=== PATIENT | male | born 1940 | race Caucasian/White ===

== ENCOUNTER 2024-08-02 16:03 | Emergency (ER) | payer OTHER, SELFPAY ==
[2024-08-02 16:05] VITALS: BP 167/96
--- NOTE | 2024-08-02 16:11 | ED.SKININJ ---
HPI-Injury
<Irma Rocha VENDING TECHNICIAN - Last Filed: 08/02/24 16:15>
General
Chief Complaint: Skin Surface Trauma
Time Seen by Provider: 08/02/24 17:09
<Sirisha Hess PA-C - Last Filed: 08/03/24 00:34>
General
Source: patient
History of Present Illness-Injury
Initial Injury comments:
84yo right hand dominant male presenting with his for evaluation after a right hand injury around 3:45pm this afternoon. A falling tree limb fell on the dorsum of his right hand causing lacerations. He arrives with throbbing R hand pain. No
paresthesias. He states his Tdap is out of date.
ED Provider Triage
<Irma Rocha VENDING TECHNICIAN - Last Filed: 08/02/24 16:15>
-
Attestation: A medical screening examination has been initiated by a qualified medical provider. Based on the assessment performed at this time, it has been determined that an emergent medical condition may exist and the patient has been informed
that further medical evaluation and possible additional diagnostic testing may be needed.
HPI: Injury to right hand from heavy tree limb falling from tree above his head.
GENERAL: Alert , in no apparent distress
ENT: No visible abnormalities.
LUNGS: No acute respiratory distress
NEUROLOGICAL: Alert and oriented
SKIN: Skin intact. Cuts on right hand.
MUSCULOSKELETAL: Injury to left hand. Dressing in place. Moving extremities normally
PSYCH: Normal and appropriate interaction.
This is a medical evaluation conducted in person to initiate diagnostic evaluation and provide initial therapeutics. Please see further documentation by the treating clinician.
Past History
<Irma Rocha VENDING TECHNICIAN - Last Filed: 08/02/24 16:15>
Past History
ED Past Medical History: HTN, NIDDM and Other
ED Past Surgical History: Tonsilectomy
Social History
Tobacco: Non-smoker
Personal:
Living: with family
Employment: Retired
Phy Exam
<Sirisha Hess PA-C - Last Filed: 08/03/24 00:34>
General Physical Exam
General Presentation: well appearing and no apparent distress
General age: appears stated age
General Skin: warm and dry
General Habitus: normal
General Mental: alert
ENT Exam
ENT Exam: normocephalic
[place] Coma Scale
Eye Opening: Spontaneous
Verbal Response: Oriented
Motor Response: Obeys Commands
GCS Total Score: 15
Musculoskeletal Exam
Musculoskeletal Exam: other (Gaping laceration to the dorsal R hand in between thumb and index finger. No exposed tendon or bone. Debris noted in wound. There is also a large skin tear to the central dorsal hand. ROM of MCP, PIP, and DIP joints
intact. 2+ radial pulse and sensation intact.)
Skin Exam
Skin Exam: normal color and warm/dry
Psychiatric Exam
Psychiatric Exam: normal mood/affect
Course
<Irma Rocha NP - Last Filed: 08/02/24 16:15>
Orders/Labs/Results
Orders:
Orders
08/02/24 16:13
Hand, Right 3 View [CR Hand - Right Min 3 Views] Urgent
Comment:
Reason For Exam: pain injury
08/02/24 17:19
Oxycodone [Roxicodone] 5 mg PO NOW STA
08/02/24 19:13
Cephalexin Monohydrate [Keflex] 500 mg PO NOW STA
08/02/24 19:55
Tetanus/Diphth/Acelpertussis [Adacel] 0.5 ml IM .ONCE ONE
Vital Signs
Initial and Last Documented VS:
Initial Vital Signs
Temp Pulse Resp BP Pulse Ox
98.1 F 91 16 167/96 97
08/02/24 16:05 08/02/24 16:05 08/02/24 16:05 08/02/24 16:05 08/02/24 16:05
Last Documented Vital Signs
Temp Pulse Resp BP Pulse Ox
98.1 F 72 18 147/74 97
08/02/24 16:05 08/02/24 20:36 08/02/24 20:36 08/02/24 20:36 08/02/24 16:05
<Sirisha Hess PA-C - Last Filed: 08/03/24 00:34>
Orders/Labs/Results
Orders:
Orders
08/02/24 16:13
Hand, Right 3 View [CR Hand - Right Min 3 Views] Urgent
Comment:
Reason For Exam: pain injury
08/02/24 17:19
Oxycodone [Roxicodone] 5 mg PO NOW STA
08/02/24 19:13
Cephalexin Monohydrate [Keflex] 500 mg PO NOW STA
08/02/24 19:55
Tetanus/Diphth/Acelpertussis [Adacel] 0.5 ml IM .ONCE ONE
Vital Signs
Initial and Last Documented VS:
Initial Vital Signs
Temp Pulse Resp BP Pulse Ox
98.1 F 91 16 167/96 97
08/02/24 16:05 08/02/24 16:05 08/02/24 16:05 08/02/24 16:05 08/02/24 16:05
Last Documented Vital Signs
Temp Pulse Resp BP Pulse Ox
98.1 F 72 18 147/74 97
08/02/24 16:05 08/02/24 20:36 08/02/24 20:36 08/02/24 20:36 08/02/24 16:05
<Mark Batista MD - Last Filed: 08/02/24 19:19>
Orders/Labs/Results
Orders:
Orders
08/02/24 16:13
Hand, Right 3 View [CR Hand - Right Min 3 Views] Urgent
Comment:
Reason For Exam: pain injury
08/02/24 17:19
Oxycodone [Roxicodone] 5 mg PO NOW STA
08/02/24 19:13
Cephalexin Monohydrate [Keflex] 500 mg PO NOW STA
08/02/24 19:55
Tetanus/Diphth/Acelpertussis [Adacel] 0.5 ml IM .ONCE ONE
Vital Signs
Initial and Last Documented VS:
Initial Vital Signs
Temp Pulse Resp BP Pulse Ox
98.1 F 91 16 167/96 97
08/02/24 16:05 08/02/24 16:05 08/02/24 16:05 08/02/24 16:05 08/02/24 16:05
Last Documented Vital Signs
Temp Pulse Resp BP Pulse Ox
98.1 F 72 18 147/74 97
08/02/24 16:05 08/02/24 20:36 08/02/24 20:36 08/02/24 20:36 08/02/24 16:05
Procedures
<Sirisha Hess PA-C - Last Filed: 08/03/24 00:34>
Laceration Closure
Right Hand:
Status of Wound: dirty and imbedded foreign material
Size of Wound in cm: 7
Description of Wound Edges: sharp
Preparation: cleaned with saline and cleaned with Betadine
Anesthesia: 1% Lidocaine
Revision/Debridement: debrided
Wound exploration: extensive cleaning of contaminated wound and all visible FB removed
Type of Closure: single layer closure
Skin Closure Material: 4-0 nylon
Number of sutures: 9
<Sirisha Hess PA-C - Last Filed: 08/03/24 00:34>
MDM/Problems Addressed
Differential Diagnosis Includes:
84yoM here with R hand swelling, pain, and lacerations after a tree branch fell on his hand. There is a gaping laceration noted between R thumb and index finger. ROM is normal and RUE is neurovascularly intact. No clinical evidence of tendon injury.
Differential diagnosis includes but is not limited to: laceration, fracture, contusion
Initial ED plan: X-rays of hand obtained in triage which are fortunately negative for fractures. Will update Tdap and repair laceration.
<Sirisha Hess PA-C - Last Filed: 08/03/24 00:34>
*Critical Care Note
Total Time (30-74mins, 75-104mins- exclusive of procedures): Not Applicable
<Sirisha Hess PA-C - Last Filed: 08/03/24 00:34>
Update Note
Update Note:
Laceration was irrigated and several foreign bodies removed. Laceration was repaired as above. Due to the large amount of soft tissue swelling, the laceration was unable to be completely closed. Laceration was repaired with simple interrupted
sutures at the peripheral aspects of the wound. Horizontal mattress sutures placed in the center. The center of the wound still has some gaping. This will heal by secondary intention. Will start on Keflex for prophylaxis given the amount of
debris in the wound. Home wound care discussed. He was advised to follow-up with his PCP in 10 days for suture removal and return to the ED with any signs of infection. Patient and expressed understanding and are agreeable to plan. He was
discharged in stable condition.
ED Attending Note
<Irma Rocha NP - Last Filed: 08/02/24 16:15>
-
Portions of this chart may have been created with voice recognition software.� Occasional wrong word or��sound alike� substitutions may have occurred due to the inherent limitations of voice recognition software.
<Mark Batista MD - Last Filed: 08/02/24 19:19>
ED Attending Note
Patient seen and examined by attending physician: Yes
I performed the substantive portion of visit, reviewed & personally made and approve the management plan that is documented in note by myself or SADIE.: Yes
ED Attending Note:
I have seen and evaluated the patient with a [id number] encounter. I have spoken to the [PA] and involved in the medical history, the physical exam, medical decision making.
Evaluation and management service: agree unless noted differently below.
Results interpretation: agree unless noted differently below.
84-year-old man presenting to the emergency department hand laceration after a tree fell down hitting his right hand. Initial exam does show neurovascularly intact with equal strength in all fingers wrist and hand. He did have significant swelling
to the dorsal aspect of the hand close to the laceration causing difficulty in closing the laceration. The laceration was repaired with simple interrupted. Towards the distal part of the laceration given the amount of swelling it was loosely
approximated. The most amount of swelling was in the middle of the laceration where horizontal mattress sutures were placed to help. Unfortunately there was still some gaping at the end given the tension/swelling. Patient aware that this will
heal by delayed secondary intention with the help of the stitches. Strict return precautions given. Given the amount of debris will start on prophylactic antibiotics.
Discharge Plan
Departure
Patient Disposition: Home (Routine Discharge)
Date of Disposition: 08/02/24
Time of Disposition: 19:15
Patient with high blood pressure during this ER visit?: Yes
Discharge Problem:
Laceration of right hand, Injury of hand, right
Instructions: Laceration Repair With Stitches (DC)
Prescriptions:
New
cephalexin 500 mg capsule
500 mg PO Q6H 7 Days Qty: 27 0RF
No Action
glyburide 5 MG tablet
2 tab PO BID
metformin 850 MG tablet
850 mg PO HS
metformin 850 MG tablet
2 tab PO DAILY
aspirin [Aspir-Low] 81 MG tablet,delayed release (DR/EC)
81 mg PO HS
simvastatin 20 MG tablet
20 mg PO HS
diphenhydramine HCl [Banophen] 25 MG capsule
25 mg PO BID
calcium polycarbophil [Fiber (calcium polycarbophil)] 625 MG tablet
625 mg PO BID
allopurinol 300 MG tablet
300 mg PO DAILY
atenolol 50 MG tablet
50 mg PO DAILY
levofloxacin 500 MG tablet
500 mg PO DAILY Qty: 7 0RF
metronidazole 500 MG tablet
500 mg PO TID Qty: 20 0RF
hydrocodone-acetaminophen [Vicodin] 1 EACH tablet
1 ea PO Q6 PRN (Reason: pain) Qty: 7 0RF
prednisone 20 MG tablet
40 mg PO DAILY Qty: 8 0RF
Referrals:
Gustavo Dominguez MD [Family Provider] -
Activity Restrictions/Additional Instructions:
Take antibiotics as prescribed. Keep wound clean and dry and do not get wet for at least the first 24 hours. Apply bacitracin to the wounds for the first several days.
Please follow-up with your family doctor for suture removal in 10 days. Return to the ER with any signs of infection (redness, drainage, warmth) or new numbness to the area.
Interventions
Interventions:
*Risk Screen - Suicide Last Done: 08/02/24 18:45
*General Assessment Last Done: 08/02/24 18:45
*Neglect/Abuse Screening Last Done: 08/02/24 20:36
*Nursing Disposition Last Done: 08/02/24 20:36
ED-Skin Assessment Last Done: 08/02/24 18:45
Discharge Date and Time
Discharge Date/Time: 08/02/24 20:37
Print Language: SYRIAC
[2024-08-02] MEDS: ROXICODONE 5 MG PO (18:07)
[2024-08-02] MEDS: KEFLEX 500 MG PO (20:02)
[2024-08-02] MEDS: ADACEL 0.5 ML IM (20:12)
[2024-08-02 20:35] VITALS: BP 147/74
[2024-08-02 20:36] VITALS: BP 147/74
== END 2024-08-02 20:37 | disposition home or self-care (01) ==
LOC: EMR 16:03
PROVIDERS: EMERGENCY PHYSICIAN Student in an Organized Health Care Education/Training Program; FAMILY PHYSICIAN Family Medicine
DX: S61.421A Laceration with foreign body of right hand, initial encounter (principal); S69.92XA Unspecified injury of left wrist, hand and finger(s), initial encounter; W20.8XXA Other cause of strike by thrown, projected or falling object, initial encounter; Z23 Encounter for immunization; I10 Essential (primary) hypertension; E11.9 Type 2 diabetes mellitus without complications; Z79.82 Long term (current) use of aspirin
CPT/HCPCS: 12042; 99283; 90471; 73130; 90715

== ENCOUNTER → 2024-09-01 08:21 | Outpatient (REF) | payer OTHER, SELFPAY | LOC: RAD 08:21 | PROVIDERS: ATTENDING PHYSICIAN Podiatrist Foot & Ankle Surgery; FAMILY PHYSICIAN Family Medicine | DX: I70.213 Atherosclerosis of native arteries of extremities with intermittent claudication, bilateral legs (principal); E11.40 Type 2 diabetes mellitus with diabetic neuropathy, unspecified | CPT/HCPCS: 93922; 93925 ==